=== PATIENT | female | born 1985 | race Caucasian/White ===

== ENCOUNTER → 2023-12-04 | Emergency (ER) | payer OTHER ==
[~2023-12-04] MED LIST: ONDANSETRON 4 MG (ODT) TAB ONE
--- NOTE | 2023-12-04 18:09 | ER ---
Nurse's Notes [facility] Name: Meagan Brown Age: 38 yrs Sex: Female : 1985 Arrival Date: 12/04/2023 Time: 17:04 Bed 9 Private MD: Diagnosis: Impacted cerumen, bilateral Presentation: 12/03 17:23 Chief complaint: Parent and/or Guardian states: She has been having some pain in her kd3 left ear. She also vomited yesterday but has not had a fever. Coronavirus screen: Vaccine status: Patient reports receiving the 2nd dose of the covid vaccine. Ebola Screen: No symptoms or risks identified at this time. Initial Sepsis Screen: Does the patient meet any 2 criteria? No. Patient's initial sepsis screen is negative. Does the patient have a suspected source of infection? No. Patient's initial sepsis screen is negative. Risk Assessment: Do you want to hurt yourself or someone else? Patient reports no desire to harm self or others. Onset of symptoms was December 03, 2023. 17:23 Method Of Arrival: Ambulatory kd3 17:23 Acuity: ZAHRA 4 kd3 Triage Assessment: 17:25 General: Appears in no apparent distress. Behavior is calm, cooperative. Pain: kd3 Complains of pain in left ear. EENT: Reports pain in left ear. Historical: - Allergies: 17:25 Ciprofloxacin; kd3 - Immunization history:: Adult Immunizations up to date. - Social history:: Smoking status: Patient denies any tobacco usage or history of. Screenin:25 [facility] ED Fall Risk Assessment (Adult) History of falling in the last 3 months, rs5 including since admission No falls in past 3 months (0 pts) Confusion or Disorientation No (0 pts) Intoxicated or Sedated No (0 pts) Impaired Gait No (0 pts) Mobility Assist Device Used No (0 pt) Altered Elimination No (0 pt) Score/Fall Risk Level 0 - 2 = Low Risk Oriented to surroundings, Maintained a safe environment. Abuse screen: Denies threats or abuse. Nutritional screening: No deficits noted. Tuberculosis screening: No symptoms or risk factors identified. Assessment: 17:25 General: Appears in no apparent distress. comfortable, Behavior is calm, cooperative. rs5 Pain: Denies pain. Neuro: Level of Consciousness is awake, alert, obeys commands, Oriented to person, place, time, situation. Cardiovascular: Patient's skin is warm and dry. Rhythm is regular. Respiratory: Airway is patent Respiratory effort is even, unlabored, Respiratory pattern is regular, symmetrical. GI: Abdomen is round non-distended, Abd is soft and non tender X 4 quads. : No signs and/or symptoms were reported regarding the genitourinary system. 17:25 EENT: EENT: Reports "I'm not having any pain, just my ear feels sort of uncomfortable. rs5 I think i have earwax in my left ear". Derm: Skin is pink, warm \\T\\ dry. Musculoskeletal: Range of motion: intact in all extremities. 18:01 Reassessment: Patient and/or family updated on plan of care and expected duration. Pain rs5 level reassessed. Patient is alert, oriented x 3, equal unlabored respirations, skin warm/dry/pink. Patient denies pain at this time. Patient states feeling better. Patient states symptoms have improved. Vital Signs: 17:27 BP 155 / 84; Pulse 103; Resp 16; Pulse Ox 99% on R/A; kd3 17:27 Temp 98.2(O); kd3 ED Course: 17:07 Patient arrived in ED. mg5 17:07 Skinny Malagon PA is PHCP. cp 17:07 Earle Zavaleta DO is Attending Physician. cp 17:25 Triage completed. kd3 17:25 Arm band placed on right wrist. kd3 17:25 Patient has correct armband on for positive identification. Placed in gown. Bed in low rs5 position. Call light in reach. Side rails up X2. 18:08 Loraine Green MD is Referral Physician. cp 18:20 No provider procedures requiring assistance completed. rs5 18:20 Patient did not have IV access during this emergency room visit. rs5 18:22 Wilbert Draper, JASSON is Primary Nurse. rs5 Administered Medications: 17:30 Drug: Ondansetron PO 4 mg PO once Route: PO; rs5 18:00 Follow up: Response: No adverse reaction rs5 Medication: 19:05 VIS not applicable for this client. rs5 Outcome: 17:20 Discharged to home ambulatory, rs5 17:20 Condition: stable 17:20 Discharge instructions given to patient, family, Instructed on discharge instructions, follow up and referral plans. Demonstrated understanding of instructions, follow-up care, 18:09 Discharge ordered by MD. daugherty 18:22 Patient left the ED. rs5 Signatures: Skinny Malagon PA PA cp Doucette, Kyli RN RN kd3 Wilbert Draper RN RN rs5 Paris Bobby mg5 Corrections: (The following items were deleted from the chart) 19:06 19:06 No provider procedures requiring assistance completed. rs5 rs5
--- NOTE | 2023-12-04 18:09 | EDPHYS ---
Physician Documentation [facility] Name: Meagan Brown Age: 38 yrs Sex: Female : 1985 Arrival Date: 12/04/2023 Time: 17:04 Bed 9 Private MD: ED Physician Earle Zavaleta HPI: 12/03 17:30 This 38 yrs old Female presents to ER via Ambulatory with complaints of Ear Pain, cp Vomiting. 17:30 The patient presents with pain, that is acute. The complaints affect the left ear. cp Onset: The symptoms/episode began/occurred today. Associated signs and symptoms: Pertinent positives: left ear pain, vomiting, Pertinent negatives: fever, sinus trouble, sore throat, active vomiting. 17:30 Severity of symptoms: in the emergency department the symptoms are unchanged despite cp home interventions. Historical: - Allergies: 17:25 Ciprofloxacin; kd3 - Immunization history:: Adult Immunizations up to date. - Social history:: Smoking status: Patient denies any tobacco usage or history of. ROS: 17:35 Constitutional: Negative for body aches, chills, fever, poor PO intake, cp 17:35 Eyes: Negative for injury, pain, redness, and discharge, cp 17:35 ENT: Positive for ear pain, Negative for drainage from ear(s), sinus congestion, sinus pain, sore throat, difficulty swallowing, difficulty handling secretions, 17:35 Respiratory: Negative for cough, shortness of breath, wheezing, 17:35 Abdomen/GI: Negative for abdominal pain, diarrhea, constipation, active vomiting, 17:35 Neuro: Negative for headache, 17:35 All other systems are negative, Exam: 17:40 Constitutional: The patient appears in no acute distress, alert, awake, non-toxic, well cp developed, well nourished, obese, 17:40 Head/Face: Normocephalic, atraumatic. cp 17:40 Eyes: Periorbital structures: appear normal, Conjunctiva: normal, no exudate, no injection, Sclera: no appreciated abnormality, Lids and lashes: appear normal, bilaterally, 17:40 ENT: External ear(s): are unremarkable, Ear canal(s): cerumen impaction, that is moderate, that is hard, bilaterally, TM's: not visable, because of cerumen, Nose: is normal, Mouth: Lips: moist, Oral mucosa: pink and intact, moist, Posterior pharynx: Airway: no evidence of obstruction, patent, erythema, is not appreciated, exudate, is not appreciated, 17:40 Neck: ROM/movement: Meningeal signs: are not present, nuchal rigidity, is not appreciated, Lymph nodes: no appreciated lymphadenopathy, 17:40 Chest/axilla: Inspection: normal, 17:40 Cardiovascular: Rate: tachycardic, 17:40 Respiratory: the patient does not display signs of respiratory distress, Respirations: normal, no use of accessory muscles, labored breathing, is not present, Breath sounds: are clear throughout, no decreased breath sounds, no stridor, no wheezing, 17:40 Abdomen/GI: Inspection: abdomen appears normal, Palpation: abdomen is soft and non-tender, in all quadrants, Vital Signs: 17:27 BP 155 / 84; Pulse 103; Resp 16; Pulse Ox 99% on R/A; kd3 17:27 Temp 98.2(O); kd3 MDM: 17:25 Patient medically screened. cp 18:08 Data reviewed: vital signs, nurses notes. cp 18:08 Historians other than the Patient: Parent: mother and father provide HPI. cp 12/03 17:25 Order name: Divyac. Order: bilateral ear flush; Complete Time: 17:42 cp Administered Medications: 17:30 Drug: Ondansetron PO 4 mg PO once Route: PO; rs5 18:00 Follow up: Response: No adverse reaction rs5 Disposition: 19:00 I was immediately available on-site in the Emergency Department for consultation in the ms3 care of the patient. Disposition Summary: 12/04/23 18:09 Discharge Ordered Notes: Location: Home cp Condition: Stable cp Diagnosis - Impacted cerumen, bilateral cp Followup: cp - With: Loraine Green MD - When: 2 - 3 days - Reason: symptoms continue Discharge Instructions: - Discharge Summary Sheet cp - Earwax Buildup, Adult cp - Ear Drops, Adult cp - Ear Irrigation cp Forms: - Medication Reconciliation Form cp - Thank You Letter cp - Antibiotic Education cp - Prescription Opioid Use cp - Patient Portal Instructions cp - Leadership Thank You Letter cp Signatures: Skinny Malagon PA PA cp Sims, Marcus, DO DO ms3 Nilda Barth, RN RN kd3 Wilbert Draper RN RN rs5 Corrections: (The following items were deleted from the chart) 12/04 14:57 12/03 17:30 Associated signs and symptoms: Pertinent positives: vomiting, Pertinent cp negatives: fever, sore throat, active vomiting, cp
[2023-12-04 18:44] VITALS: BP 155/84; TEMP 98.2; O2SAT 99
== END ==
LOC: ER 17:04
DX: H61.23 Impacted cerumen, bilateral (principal); R11.10 Vomiting, unspecified; Z88.1 Allergy status to other antibiotic agents
CPT/HCPCS: 99283; Q0162